=== PATIENT | female | born 2000 | race Caucasian/White ===

== ENCOUNTER 2020-05-14 22:49 | Emergency (ER) | payer OTHER, SELFPAY ==
[2020-05-14 22:56] VITALS: BP 108/88; PULSE 74; RESP 19; TEMP 36.6; O2SAT 100
[2020-05-14 23:48] LABS: Basophils Absolute Auto 0.1 K/mm3 (0.0-0.1); Basophils Percent Auto 0.9 % (0.2-1.2); Eosinophils Absolute Auto 0.1 K/mm3 (0-0.3); Eosinophils Percent Auto 0.9 % (0-4.4); Hematocrit 40.4 % (37.0-47.0); Hemoglobin 13.5 g/dL (12.0-15.0); Immature Granulocyte Absolute 0.01 K/mm3 (0.00-0.031); Immature Granulocyte Percent A 0.2 % (0-0.5); Lymphocytes Absolute Auto 3.25 K/mm3 (0.9-3.2); Lymphocytes Percent Auto 49.2 % (18.3-44.2); Mean Corpuscular HGB Conc 33.4 g/dl (32-36); Mean Corpuscular Volume 98.8 fl (80-100); Mean Platelet Volume 10.4 fl (7.4-10.4); Monocytes Absolute Auto 0.5 K/mm3 (0.1-0.6); Monocytes Percent Auto 7.3 % (2.6-8.5); Neutrophils Absolute Auto 2.7 K/mm3 (1.3-6.7); Neutrophils Percent Auto 41.5 % (45.5-73.1); Platelet Count Result 296 k/mm3 (150-375); Red Blood Count 4.09 M/mm3 (4.2-5.4); Red Cell Distribution Width 12.7 % (11.5-14.5); White Blood Count 6.6 K/mm3 (4.5-10.0)
[2020-05-14 23:54] LABS: Alanine Aminotransferase 64 U/L (4-35); Albumin Level 4.9 g/dL (3.5-5.1); Alkaline Phosphatase 69 U/L (38-126); Aspartate Amino Transferase 55 U/L (14-36); Bilirubin,Total 0.2 mg/dL (0.2-1.3); Blood Urea Nitrogen 5 mg/dL (7-17); Calcium 9.3 mg/dL (8.4-10.2); Carbon Dioxide 23 mmol/L (22-30); Chloride 110 mmol/L (98-107); Estimated CRCL calculation 94 ml/min; Estimated Glomerular Filt Rate > 60; Glucose 99 mg/dL (65-105); Potassium 3.8 mmol/L (3.4-5.0); Sodium 144 mmol/L (137-145)
[2020-05-14 23:56] LABS: Add Urine Microscopic? NO; Appearance Urine Clear (Clear); Bilirubin Urine Negative (Negative); Blood Urine Negative (Negative); Color Urine Colorless (Yellow); Glucose Urine UA Negative (Negative); Ketones Urine Negative (Negative); Leukocyte Esterase Ur Negative LEU/UL (Negative); Nitrate Urine Negative (Negative); Protein Urine Negative (Negative); Urobilinogen Urine Negative mg/dL (<2.0); WBC Urine 0-3 /hpf
[2020-05-14 23:58] LABS: Specific Grav Ur 1.002 (1.001-1.035)
[2020-05-15] LABS: Ethanol 243 mg/dL (<10)
[2020-05-15 00:11] LABS: Amphetamine Screen Urine Negative (Negative); Barbiturate Screen Urine Negative (Negative); Benzodiazepines Screen Urine Negative (Negative); Cannabinoid Screen Urine Negative (Negative); Cocaine Screen Urine Negative (Negative); Methadone Screen Urine Negative (Negative); Opiate Screen Urine Negative (Negative); Phencyclidine Screen Urine Negative (Negative)
--- NOTE | 2020-05-15 01:18 | ED.PSYCH ---
HPI - Psych General Chief Complaint: Psychiatric Symptoms <Shae Enriqeu MD - Last Filed: 05/21/20 19:34> Stated Complaint: SI <Shae Enrique MD - Last Filed: 05/21/20 19:34> Time Seen by Provider: 05/15/20 01:14 <Shae Enrique MD - Last Filed: 05/21/20 19:34> History of Present Illness HPI Narrative: Patient presents with a history of depressed sorensen and recent cutting of her left arm. She is intoxicated, and said she was trying to kill herself. She is on Effexor for her depression. She has not been sick recently. She has the Mirena in her left arm, for control. She has not had any surgeries. Her tetanus shot is up-to-date. 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 <Shae Enrique MD - Last Filed: 05/21/20 19:34> MD complaint: suicidal ideation and feels depressed <Shae Enrique MD - Last Filed: 05/21/20 19:34> Onset (ago): day(s) <Shae Enrique MD - Last Filed: 05/21/20 19:34> Related Data Home Medications: Home Medications Medication Instructions Recorded Confirmed No Home Medications 05/15/20 05/15/20 <Shae Enrique MD - Last Filed: 05/21/20 19:34> Allergies/Adverse Reactions: Allergies Allergy/AdvReac Type Severity Reaction Status Date / Time No Known Allergies Allergy Verified 05/15/20 16:45 <Shae Enrique MD - Last Filed: 05/21/20 19:34> Review of Systems Review of Systems: Narrative: CONSTITUTIONAL: Denies fever, chills, or sweats. EYES: Denies visual changes, redness, or discharge. ENT: Denies rhinorrhea, congestion, sore throat, or otalgia. CARDIOVASCULAR: Denies chest pain, palpitations, or edema. RESPIRATORY: Denies cough or dyspnea. GASTROINTESTINAL: Denies abdominal pain, nausea, vomiting, or diarrhea. GENITOURINARY: Denies dysuria or hematuria. SKIN: Denies rash or itching. MUSCULOSKELETAL: Denies back pain, joint pain, or myalgia. NEUROLOGIC: Denies headache, numbness, or weakness. PSYCHIATRIC: He has depression. <Shae Enrique MD - Last Filed: 05/21/20 19:34> PMFSH Past Medical History Medical History: Medical History (Updated 05/18/20 @ 00:00 by Background Daemon) Alcohol intoxication Deliberate self-cutting <Shae Enrique MD - Last Filed: 05/21/20 19:34> Surgical History Surgical History: Surgical History (Updated 05/15/20 @ 01:20 by Shae Enrique MD) No pertinent past surgical history <Shae Enrique MD - Last Filed: 05/21/20 19:34> Social History Social History: Social History (Updated 05/15/20 @ 01:20 by Shae Enrique MD) Smoking status: Never smoker Alcohol intake: current Substance use: never Gender identity (if verbalized by the patient): Female <Shae Enrique MD - Last Filed: 05/21/20 19:34> Exam Narrative: Exam Narrative: GENERAL: Well-appearing, well-nourished, and in no acute distress. HEAD: Normocephalic, atraumatic. EYES: PERRLA and EOMI. ENT: Nares clear, no rhinorrhea or epistaxis. Mucous membranes moist. NECK: Supple. CHEST: Clear to auscultation. No respiratory distress. HEART: Regular rate and rhythm. No murmur heard. Normal peripheral pulses. ABDOMEN: Soft, nontender, nondistended, normal active bowel sounds. EXTREMITIES: Normal range of motion. No edema. SKIN: Warm, dry, no rash. Numerous shallow cuts of the left forearm. NEURO: No focal deficits. Alert and oriented x3. PSYCH: Normal mood and affect. <Shae Enrique MD - Last Filed: 05/21/20 19:34> Course Course Emergency Course: Dr. Salazar will assume care at 7 AM. Patient is awaiting psychiatric placement. <Shae Enrique MD - Last Filed: 05/21/20 19:34> Reevaluation(s) Reevaluation #1: Assumed care from Dr. Salazar at 7 PM last night. Patient is sleeping comfortably. She is awaiting transfer to a psychiatric hospital. We will check back out to Dr. Salazar in the morning. <Shae Enrique MD - Last Filed: 05/21/20 19:34> Patient resting comforta
[2020-05-15 06:06] VITALS: BP 93/59; PULSE 106; RESP 22; TEMP 36.8; O2SAT 97
[2020-05-15 08:15] LABS: Ethanol 46 mg/dL (<10)
--- NOTE | 2020-05-15 12:02 | PC.NURSE ---
Crisis called to verify if [facility] was called regarding possible admission. Patient's mother agitated due to waiting for potential placement. Advised mother that this RN would call and verify.
[2020-05-15 13:43] VITALS: BP 112/64; PULSE 92; RESP 20; O2SAT 100
--- NOTE | 2020-05-15 13:44 | PC.NURSE ---
LUNCH ORDER PLACED FOR PATIENT.
--- NOTE | 2020-05-15 13:58 | PC.NURSE ---
Re-faxed paperwork to [facility].
--- NOTE | 2020-05-15 14:16 | PC.NURSE ---
Mother requesting to speak with transfer and pumphouse operator again. HS called and notified of Mother's request; states he has multiple tasks to take care of at this time, but will be down as soon as possible. Mother called Maggie to check if fax has been received; advised this RN that she was told [facility] has no beds.
--- NOTE | 2020-05-15 14:30 | PC.NURSE ---
Spoke with Yadira from [facility] regarding possible placement of patient. She states she doesn't have enough to hold her there and it's not my recommendation for inpatient psych treatment. States that they will not find placement if it is not their recommendation.
--- NOTE | 2020-05-15 14:36 | PC.NURSE ---
Spoke with mother extensively about the situation of crisis eval and waiting for placement. Mother appears to be upset about the lack of anything to be done with her daughter while waiting here in the ER. Mother upset that winery worker,Yadira has deemed her daughter ok to go home with mother to find placement And per mother Dr Nguyễn saw her only for 3 minutes and says he cannot discharge her home when I don't have a plan for her if [facility] refuses admission . Dr Salazar states pt is not safe to discharge with no plan of care if she cannot get into inpatient care. Mother also stating it's a scam this hospital is running - keeping psychiatric here against their will
--- NOTE | 2020-05-15 14:38 | PC.NURSE ---
Called Crisis per request of EDP to have Yadira come back and discuss case with him. Spoke with Yadira and she states, I will call my upholstery department supervisor and see how she wants to handle this.
--- NOTE | 2020-05-15 14:50 | PC.NURSE ---
Call from Christina, Slots Manager at [facility]. Advised her of EDP's concerns. States she did not receive all information from Yadira and would discuss the case with her. Awaiting return call at this time.
--- NOTE | 2020-05-15 16:21 | PC.NURSE ---
Call to Crisis for update regarding phone call with supervisor smoke control, Christina. Yadira advised she would be faxing over a new assessment to fit what the doctor wants it to say. Also states she will have evening staff start searching for placement.
--- NOTE | 2020-05-15 17:44 | PC.NURSE ---
EDP on phone at this time with Christina recycling crew supervisor at [facility].
--- NOTE | 2020-05-15 18:15 | PC.NURSE ---
DINNER ORDER PLACED FOR PATIENT.
--- NOTE | 2020-05-15 19:30 | PC.NURSE ---
report taken from dariusz butler at this time.
[2020-05-15 21:01] VITALS: BP 101/49; PULSE 93; RESP 20; O2SAT 100
[2020-05-16 05:01] VITALS: BP 100/55; PULSE 65; RESP 19; TEMP 36.7; O2SAT 100
--- NOTE | 2020-05-16 05:08 | PC.NURSE ---
ATTEMPTED TO CALL CRISIS AT THIS TIME. WAITED ON HOLD FOR 10+ MINUTES WITH NO ANSWER. WILL TRY AGAIN LATER.
--- NOTE | 2020-05-16 06:26 | PC.NURSE ---
attempted to call crisis again, no answer.
--- NOTE | 2020-05-16 07:15 | PC.NURSE ---
Report received from LION Shukla to continue care. Pt ambulated to ED Rm 9. Sitter remains in place, room precautions continued.
--- NOTE | 2020-05-16 07:32 | PC.NURSE ---
Reached Silvia at Crisis, states she came on this am at 0630 and will let her brew house supervisor know about the multiple attempts made overnight without success. Explained that Fernanda is needing reevaluation, states that they're still attempting to find placement. Reports that they only re-evaluate every 24 hours when they have a petition or something changes . Explained that this RN was under the impression that they get re-evaluated every 24 hours, and that Leah' 24 hour re-evaluation time is due this am. Silvia reports that someone will be out later this am to evaluate her .
[2020-05-16 07:42] VITALS: BP 101/77; PULSE 69; RESP 18; TEMP 36.8; O2SAT 100
--- NOTE | 2020-05-16 07:52 | PC.NURSE ---
Repeat psychosocial evaluation done per this RN. Pt states she has never had suicidal attempts, that she's a cutter. Pt states she feels she has a problem with drinking alcohol and is requesting inpatient help with this. Pt states she cut her arms because someone close to her , and that it has nothing to do with a boyfriend calling her names. has plenty of friends and her parents are extremely supportive. has already had a breakfast tray and denies needs at present. Made aware that are awaiting crisis to come and re-evaluate.
--- NOTE | 2020-05-16 09:55 | PC.NURSE ---
Hailey from [facility] here to speak with patient.
--- NOTE | 2020-05-16 10:20 | PC.NURSE ---
Pt's mother here to visit with patient. Mother is allowed to visit per Evangelista SchwabMid Teacher.
--- NOTE | 2020-05-16 10:47 | PC.NURSE ---
Pt, mother, and Silvia from [facility] remain at patient's bedside.
--- NOTE | 2020-05-16 11:09 | PC.NURSE ---
Addendum entered by Facundo Leung RN 05/17/20 07:28: Should read pt agrees and is currently a voluntary admission . Pt has agreed to inpatient treatment and transport. Original Note: Dr. Salazar speaking with Hailey from [facility]. Both agree that pt needs inpatient mental health evaluation. Pt agrees and is currently an involuntary admission. Pt remains visiting with mother.
--- NOTE | 2020-05-16 13:23 | PC.NURSE ---
Awaiting response from [facility] in [place] and [facility]. Pt finishing up lunch tray. Denies needs at present.
--- NOTE | 2020-05-16 13:41 | PC.NURSE ---
Report given to Martinez from [facility] in [place], [place]. Martinez states he will call back with an update about whether their facility can accept the patient after he speaks with his physician.
--- NOTE | 2020-05-16 14:16 | PC.NURSE ---
Jodie from [facility] returned call and asks why is this patient coming from 5 hrs away? Do you not have behavioral health treatment centers around you? . Explained that we've tried multiple placements over the past 3 days without success; that the reasons for not accepting are that they don't meet criteria or that beds are full. Jodie then states so, it's not because she has a developmental delay, or something funny about her? . Explained that the patient has no history of this per my previous report. Crisis number for Hailey from [facility] (who was here to evaluate the patient earlier) given, in case Jodie wishes to speak with her directly about the reasons for going up north. Covid swab collected per order.
--- NOTE | 2020-05-16 14:55 | PC.NURSE ---
Received call from Kirti with [facility] in [place] for report. Explained that the patient has been accepted at another facility.
--- NOTE | 2020-05-16 15:54 | PC.NURSE ---
Patient informed of accepting MD and hospital at [facility]. Patient agreeable to transport. Explained the process and the EMS will transport to the receiving hospital in the am at 0800 on 05/17. pt denies any further questions.
--- NOTE | 2020-05-16 16:07 | PC.NURSE ---
Pt's mother has left the facility temporarily; pt's father at bedside with her consent and permission of second visitor per Evangelista SchwabBituminous Distributor Operator.
--- NOTE | 2020-05-16 16:09 | PC.NURSE ---
Call to [facility] to explain that there isno transport available to [facility] until tomorrow am. Spoke with Dorothy. Dorothy states to call when the patient actually leaves the facility and is enroute.
--- NOTE | 2020-05-16 16:15 | PC.NURSE ---
Pt has been accepted to [facility] phone [phone] Ribera.
--- NOTE | 2020-05-16 17:37 | PC.NURSE ---
Pt's mother is now at bedside visiting with patient and father has left the rear premises.
--- NOTE | 2020-05-16 19:21 | PC.NURSE ---
Report to LION Haro, to continue care.
--- NOTE | 2020-05-16 21:01 | PC.NURSE ---
[facility] called, stated patient is to be taken to intake upon arrival for bed number tomorrow. Address [address] [address]
--- NOTE | 2020-05-16 21:57 | PC.NURSE ---
Patient noted by sitter to have ipad. This RN into room, explained to patient and father that patient is not allowed to have electronics. Father took Ipad and stated he understood. Patient and father agree that father will take patient belongings home instead of patient taking belongings to new facility tomorrow. Patient asked for new scrubs and socks. Offered patient shower. Patient stated she did not feel comfortable showering here, new clothes given.
--- NOTE | 2020-05-17 06:10 | PC.NURSE ---
Patient's mother noted to be walking into room with 3 bags and her purse. This RN into room. Explained that we would have to take the patient's additional belongings and make a list for transport. Also explained that the mother is not to have her purse in the patient's room. Patient's mother stated, Well I have had it the whole time and why do you need a list? Explained it is policy to create a list of patient belongings being transferred and that patient is not allowed to have belongings in room. Explained to mother that despite having her purse in prior visits, it is policy that she cannot have it and was asked to remove it. Patient's mother did not remove purse but sat back down in chair. plasma processor aware and in to speak with patient's mother.
[2020-05-17 06:33] VITALS: BP 111/68; PULSE 81; RESP 18; TEMP 36.9; O2SAT 99
--- NOTE | 2020-05-17 07:40 | PC.NURSE ---
spoke with Melany from crisis. will come to ed to redo petition. Kelsey in dept for transfer. updated mother regarding pts plan of care. pt provided with breakfast tray.
[2020-05-17 10:42] LABS: SARS-CoV-2 RNA PCR Negative
== END 2020-05-17 08:25 ==
PROVIDERS: Emergency Medicine; Emergency Provider Emergency Medicine
DX: S51.812A Laceration without foreign body of left forearm, initial encounter (principal); F10.129 Alcohol abuse with intoxication, unspecified; Y90.8 Blood alcohol level of 240 mg/100 ml or more; X78.8XXA Intentional self-harm by other sharp object, initial encounter; Z11.59 Encounter for screening for other viral diseases; R94.5 Abnormal results of liver function studies
CPT/HCPCS: 36415; 80053; 80307; 81003; 81025; 84443; 85025; 87635; 99285; C9803; U0003